=== PATIENT | male | born 1960 | race Caucasian/White ===

== ENCOUNTER 2019-08-27 12:00 | Emergency (ER) | payer SELFPAY ==
[2019-08-27 12:23] VITALS: BMI 28.7
--- NOTE | 2019-08-27 13:29 | PDOC ---
History of Present Illness - General Chief Complaint: Urinary Problem Stated Complaint: URINARY PROBLEM Time Seen by Provider: 08/27/19 12:48 History Source: Patient Exam Limitations: No Limitations - History of Present Illness Initial Comments: 08/27/19 13:27 Patient is a 58-year-old male who presents to the ED with complaint of pain with urination since yesterday. He denies any blood in his urine. He does admit to having some urgency. He denies any fevers or chills. He denies any back pain. The patient denies any nausea or vomiting. He has not taken anything for his symptoms. He denies any past medical history or allergies to medications. Past History - Past Medical History Allergies/Adverse Reactions: Allergies Allergy/AdvReac Type Severity Reaction Status Date / Time No Known Allergies Allergy Verified 08/27/19 12:23 COPD: No - Psycho Social/Smoking Cessation Hx Smoking History: Never smoked Have you smoked in the past 12 months: No Information on smoking cessation initiated: No Hx Alcohol Use: No Drug/Substance Use Hx: No Review of Systems - Review of Systems Comments:: 08/27/19 13:27 - Review of Systems Able to Perform ROS?: Yes Constitutional: No: Fever, Chills, Loss of Appetite, Night Sweats, Weakness Respiratory: No: Cough, Shortness of Breath, Wheezing, Sputum Production Cardiac (ROS): No: Chest Pain, Chest Tightness, Palpitations, Irregular Heart Beat, Edema ABD/GI: No: Nausea, Vomiting, Abdominal Pain, Diarrhea : No Hematuria, No Penile Discharge/Pain; Positive: dysuria, frequency, urgency Musculoskeletal: No: Muscle Pain, Back Pain, Joint Pain, Muscle Weakness, Neck Pain Integumentary: No: Lesions, Rash Neurological: No: Headache, Numbness, Tingling, Weakness, Speech Difficulties *Physical Exam - Vital Signs Last Vital Signs Temp Pulse Resp BP Pulse Ox 98.3 F 87 21 H 163/76 95 08/27/19 12:21 08/27/19 12:21 08/27/19 12:21 08/27/19 12:21 08/27/19 12:21 - Physical Exam 08/27/19 13:28 - Physical Exam General Appearance: Nourished, Appropriately Dressed, No Distress HEENT: EOMI, Normal Voice, No Muffled/Hoarse voice, No Nasal Congestion, No Rhinorrhea, Hearing Grossly Normal Neck: Supple, No Lymphadenopathy (R), No Lymphadenopathy (L), No Rigidity, No Decreased range of motion Respiratory/Chest: Lungs Clear, Normal Breath Sounds. No Respiratory Distress, No Accessory Muscle Use Cardiovascular: Regular Rhythm, Regular Rate, S1, S2 Gastrointestinal/Abdominal: Normal Bowel Sounds, Soft. Non-tender, No Guarding, No Rebound, No Rigidity; mild suprapubic abdominal tenderness to palpation. No CVA tenderness bilaterally. Musculoskeletal: Normal Inspection. No Decreased Range of Motion Extremity: Normal Capillary Refill, Normal Inspection Integumentary: Normal Color, Dry. 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 Plan: -Labs ordered including CBC, CMP, UA, urine culture -Will reassess 08/27/19 14:11 The patient's UA and labs are are negative. We will get a spiral CT to assess for possible stone causing his discomfort. 08/27/19 16:15 The patient had a post void residual done and was found to be in urinary retention. The patient has been made aware that he that his CT scan shows hydronephrosis b/l secondary to enlarged prostate. 08/27/19 16:47 The patient had a Garcia placed and will be sent home with a garcia to leg bag. He will follow up with urology within 2 days for repeat evaluation. 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 He understands and agrees with treatment and plan and he is stable for discharge. Discharge - Discharge Information Problems reviewed: Yes Clinical Impression/Diagnosis: Urinary retention Condition: Stable - Follow up/Referral Referrals: Yoseph Lawton MD [Staff Physician] - Kendell Johnson MD., [Staff Physician] - 2 Days - Patient Discharge Instructions Patient Printed Discharge Instructions: DI for Urinary Retention in Men Additional Instructions: Follow-up with urology within 2 days for repeat evaluation. You must leave the catheter in until it is removed by urology. Get plenty of rest and drink plenty of fluids. Return to the emergency department for high fevers, shaking chills, profuse vomiting or any other worsening symptoms. Print Language: ICELANDIC - Post Discharge Activity Work/Back to School Note: Back to Work
[2019-08-27 13:30] LABS: BASO % 0.6 % (0-2.0); EOS % 0.6 % (0-4.5); HEMATOCRIT 45.3 % (35.4-49); HEMOGLOBIN 15.1 GM/dL (11.7-16.9); LYMPH % 18.4 % (8-40); MCH 29.5 pg (25.7-33.7); MCHC 33.3 g/dl (32.0-35.9); MEAN CELL VOLUME 88.7 fl (80-96); MONO % 9.4 % (3.8-10.2); PLATELET COUNT 293 K/MM3 (134-434); RBC 5.11 M/mm3 (4.00-5.60); RDW 13.1 % (11.9-15.9); WHITE BLOOD COUNT 10.6 K/mm3 (4.0-10.0)
[2019-08-27 13:32] LABS: PH,URINE 6.5 (5.0-8.0); URINE APPEARANCE CLEAR; URINE BILIRUBIN NEGATIVE (NEGATIVE); URINE COLOR YELLOW; URINE GLUCOSE (UA) NEGATIVE (NEGATIVE); URINE KETONE NEGATIVE (NEGATIVE); URINE LEUK ESTERASE NEGATIVE (NEGATIVE); URINE NITRITE NEGATIVE (NEGATIVE); URINE PROTEIN NEGATIVE (NEGATIVE); URINE UROBILINOGEN 0.2 mg/dL (0.2-1.0)
[2019-08-27 14:00] LABS: BLOOD UREA NITROGEN 14.5 mg/dL (7-18); CALCIUM 8.4 mg/dL (8.5-10.1); POTASSIUM 3.8 mmol/L (3.5-5.1)
[2019-08-27 16:51] VITALS: BP 149/88; PULSE 66; TEMP 97.8
== END 2019-08-27 17:31 | disposition home or self-care (01) ==
LOC: JER 12:00
PROC: 0T9B70Z Drainage of Bladder with Drainage Device, Via Natural or Artificial Opening (ICD-10-PCS; principal; 2019-08-27)
DX: N40.1 Benign prostatic hyperplasia with lower urinary tract symptoms (principal); R33.8 Other retention of urine; R10.33 Periumbilical pain
CPT/HCPCS: 36415; 74176-TC; 80048; 81003; 85025; 87086; 99284-25